=== PATIENT | male | born 1950 | race Caucasian/White ===

== ENCOUNTER → 2017-02-21 | Day surgery (SDC) | payer MEDICARE, OTHER ==
[~2017-02-21] VITALS: Ht 177.8 cm; Wt 85.3 kg
[~2017-02-21] MED LIST: AMLODIPINE-ATO1 EAC9 PO; BICALUTAMIDE50 MG PO; CPAP INH; LEVOTHROID (S100 MCG PO; LOTENSIN10 MG PO; NORCO 5-325 TA1 EACH PO; PRILOSEC20 MG PO
--- NOTE | ~2017-02-21 | HP ---
PATIENT'S NAME: DOMINGO ORTEGA [facility] AGE: 67 Y [address] ROOM: [place] [address] LOCATION: [facility] [place] ADMIT DATE: 02/21/2017 History & Physical DISCHARGE DATE: FAMILY PHYSICIAN: Doroteo Montaño MD ATTENDING PHYSICIAN: Julian Knight DATE OF SERVICE: CHIEF COMPLAINT: Increasing voiding difficulty secondary to prostate cancer. 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 He was originally diagnosed in 2002 with Anita grade 8. He had pathologic stage T3b at the time of the surgery in November 2002. He followed up surgery with radiation therapy. It recurred relatively quickly and was started on hormone therapy. He has been maintained on that since 2003. He has become hormone refractory. He has had bladder neck contractures, incontinence, urinary retention, urinary tract infections, etc., relative to his local progression and his past history surgery and radiation. He is to the point, having done self intermittent catheterizations, but he requests suprapubic tube. He has had urodynamic testing as well as cystoscopy. He underwent a transurethral resection of his bladder neck less than a year ago. With all of the complications, we are going to take his urethra and bladder neck out of the equation with the suprapubic tube. PAST MEDICAL HISTORY: His past history is related to the above. He did have a diagnosis of colon cancer in 2014. He underwent a partial colectomy. He has done fine from that standpoint. He has hypertension. MEDICATIONS: 1. Casodex. 2. Benazepril. 3. Thyroid replacement. 4. Amlodipine. ALLERGIES: LUPRON INJECTIONS. REVIEW OF SYSTEMS: He denies any cardiopulmonary or GI complaints. His main complaints and his detriment to his current quality of life are related to his prostate cancer PATIENT'S NAME: DOMINGO ORTEGA [facility] AGE: 67 Y [address] ROOM: [place] [address] LOCATION: [facility] [place] ADMIT DATE: 02/21/2017 History & Physical DISCHARGE DATE: FAMILY PHYSICIAN: Doroteo Montaño MD ATTENDING PHYSICIAN: Julian Knight and associated complications outlined above. FAMILY HISTORY: Noncontributory. SOCIAL HISTORY: . He does not smoke or drink. PHYSICAL EXAMINATION: GENERAL: The patient appears his usual self. VITAL SIGNS: Blood pressure is 128/76 with a pulse of 78. He is 196 pounds which is relatively stable for him. HEART: Currently regular. BREASTS: He has developed gynecomastia from his chronic hormonal ablation. ABDOMINAL: Reveals well-healed surgical sites. LUNGS: Clear. : Per his cystoscopies and he is known prostate cancer. EXTREMITIES: No clubbing, cyanosis, or edema. IMPRESSION: High-grade adenocarcinoma of prostate, status post surgery and radiation and now on total androgen ablation with most recent PSA of 2.5 and with persistent and progressive complications secondary to his local progression and his past history. Those complications include urinary retention, urinary incontinence, urinary tract infections, etc. He voided with indwelling catheters. He had been self catheterizing in the past. He presents at this time for suprapubic tube placement. He has had his questions answered. He understands the indications, risks, and benefits. He wishes to proceed. JULIAN KNIGHT MD [facility]/modl /[id number] CC: Doroteo Montaño MD D: 31 HISTORY & PHYSICAL
--- NOTE | ~2017-02-21 | OR ---
PATIENT'S NAME: DOMINGO ORTEGA [facility] AGE: 67 Y [address] ROOM: [place] [address] LOCATION: [facility] [place] ADMIT DATE: 02/21/2017 OR/Procedure Report DISCHARGE DATE: FAMILY PHYSICIAN: Doroteo Montaño MD ATTENDING PHYSICIAN: Julian Knight SURGEON: Julian Knight MD LABEL PRINTER: DATE OF PROCEDURE: 02/21/2017 PREOPERATIVE DIAGNOSES: 1. High-grade adenocarcinoma of the prostate with local progression with past history of surgery and radiation. 2. Associated urinary incontinence. 3. Urinary retention. 4. Urinary tract infections. POSTOPERATIVE DIAGNOSES: 1. High-grade adenocarcinoma of the prostate with local progression with past history of surgery and radiation. 2. Associated urinary incontinence. 3. Urinary retention. 4. Urinary tract infections. 5. Bladder stone. PROCEDURES: 1. Cystoscopy with litholapaxies. 2. Suprapubic tube placement. ANESTHESIA: Sedation plus local. INDICATIONS: This is a 67-year-old gentleman with the above-noted diagnoses. He is approximately 14 years out from diagnosis with a Kim grade 8. He had pathologic stage T3b at the time of surgery. He followed that with radiation therapy. He has had progressive complications secondary to his surgery and radiation as well as associated bladder neck contractures. He has done intermittent self-catheterizations. He has had recurrent infections. He is having incontinence. He presents at this time for suprapubic tube placement. DESCRIPTION OF PROCEDURE: Having obtained his informed consent, the patient was taken to the operating room. He was prepped and draped sterilely in the lithotomy position. IV sedation is administered. I started with the Lowsley. I did dilate his distal urethra. I then got back to his bladder neck, and consistent with his history, it is obstructed. I passed the cystoscope. We got into his bladder. He has a 1 cm stone in his bladder. Bladder itself was PATIENT'S NAME: DOMINGO ORTEGA [facility] AGE: 67 Y [address] ROOM: [place] [address] LOCATION: [facility] [place] ADMIT DATE: 02/21/2017 OR/Procedure Report DISCHARGE DATE: FAMILY PHYSICIAN: Doroteo Montaño MD ATTENDING PHYSICIAN: Julian Knight otherwise unremarkable other than the bladder neck contracture. Once we got him dilated, used the lithotrite and broke the stone up. All stones were evacuated. He has extensive calcification at the bladder neck. With the stone broken up and removed, I passed the Lowsley again. The skin overlying the Lowsley was infiltrated with 1% lidocaine epinephrine. A 1 cm incision was made. It was taken down on the Lowsley. The Lowsley was brought through the abdominal wall. I then brought it out through the urethra in an antegrade fashion. I then followed it back in cystoscopically. With the catheter in good position, the balloon is inflated. Catheter irrigates nicely. He had some mild bleeding at the bladder neck, but there is no other bleeding. The catheter is secured with a Prolene suture, which was also used to close our small incision. The case was concluded. The patient tolerated the procedure well. Blood loss was minimal. No specimens were sent. The patient returned to the outpatient recovery in awake and stable condition. JULIAN KNIGHT MD [facility]/modl /[id number] CC: Doroteo Montaño MD d: 02/21/1723 t: 02/23/17 0933, OPERATIVE SUMMARY
[2017-02-21 06:59] LABS: BASOPHIL # 0.1 K/uL (0.0-0.2); EOSINOPHIL # 0.1 K/uL (0.0-0.5); EOSINOPHIL % 2.6 %; HEMATOCRIT 40.5 % (37.0-53.0); HEMOGLOBIN 13.4 g/dL (11.0-16.0); IMMATURE GRANULOCYTE % 0.2 %; LYMPHOCYTE # 1.6 K/uL (0.8-4.0); LYMPHOCYTE % 33.1 %; MCH 31.6 pg (27.0-34.0); MCHC 33.1 gm/dL (32.0-36.5); MCV 95.5 fl (83.0-98.0); MONOCYTE # 0.4 K/uL (0.0-1.0); MONOCYTE % 7.9 %; MPV 8.7 fl (9.4-12.4); NEUTROPHIL # (ANC) 2.7 K/uL (1.4-9.0); NEUTROPHIL % 55.2 %; NRBC % 0 /100WBC (0-0.00); PLATELET COUNT 216 K/uL (150-450); RBC 4.24 M/uL (3.50-5.50); RDW-CV 12.1 % (11.9-14.6); WBC 4.9 K/uL (4.0-11.0)
[2017-02-21 07:29] LABS: ALBUMIN 3.8 gm/dL (3.5-5.0); ALK PHOS 85 IU/L (33-138); ALT 23 IU/L (12-78); BLOOD UREA NITROGEN 14 mg/dL (6-24); CALCIUM 8.2 mg/dL (8.5-10.5); CHLORIDE 108 mMol/L (96-110); CO2 28 mMol/L (22-32); CREATININE 0.9 mg/dL (0.6-1.3); ESTIMATED GFR (MDRD EQUATION) > 60; SODIUM 143 mMol/L (135-145); TOTAL BILIRUBIN 0.8 mg/dL (0.0-1.5); TOTAL PROTEIN 7.2 g/dL (6.0-8.4)
[2017-02-21 07:32] LABS: ANION GAP 10.9 (10.0-19.0); AST 19 IU/L (10-40)
[2017-02-21 07:33] LABS: POTASSIUM 3.9 mMol/L (3.7-5.1)
== END | disposition disaster alternative care site (69) ==
LOC: GPOC 02-10 09:00 → GSDC 06:28
PROVIDERS: Urology
PROC: 0TCB8ZZ Extirpation of Matter from Bladder, Via Natural or Artificial Opening Endoscopic (ICD-10-PCS; principal; 2017-02-21)
PROC: 0T9B80Z Drainage of Bladder with Drainage Device, Via Natural or Artificial Opening Endoscopic (ICD-10-PCS; 2017-02-21)
DX: N21.0 Calculus in bladder (principal); C61 Malignant neoplasm of prostate; N13.9 Obstructive and reflux uropathy, unspecified; R32 Unspecified urinary incontinence; R33.8 Other retention of urine; E11.9 Type 2 diabetes mellitus without complications; K21.9 Gastro-esophageal reflux disease without esophagitis; E03.9 Hypothyroidism, unspecified; I10 Essential (primary) hypertension; Z90.49 Acquired absence of other specified parts of digestive tract
CPT/HCPCS: J1956; J2001; J2405; J3010; J7030

== ENCOUNTER 2017-07-18 01:21 | Emergency (ER) | payer MEDICARE, OTHER ==
--- NOTE | ~2017-07-18 | ER ---
PATIENT'S NAME: DOMINGO ORTEGA [facility] AGE: 67 Y [address] ROOM: [place] [address] LOCATION: [facility] ADMIT DATE: 07/18/2017 ER/Outpatient Report DISCHARGE DATE: FAMILY PHYSICIAN: Doroteo Montaño MD ATTENDING PHYSICIAN: Gisela Hernadez HISTORY OF PRESENT ILLNESS: This is a 67-year-old male who presents today with a chief complaint of problems with his suprapubic urinary catheter. He states it has been leaking around in the penis and he has increased sediment in the bag drainage. He says that he noticed that the drainage from the bag has been a lot less today. Also, feels some pressure in his lower abdomen. Denies any nausea, vomiting, fever, chills, or any other complaints. No burning. PAST MEDICAL HISTORY: Includes prostate cancer status post radiation, chronic urinary retention, hypertension, hyperthyroid. SURGICAL HISTORY: Includes colon resection, suprapubic cath. SOCIAL HISTORY: Chewing tobacco. Alcohol occasionally. Denies any drug use. MEDICATIONS: Please see med list. ALLERGIES: NONE. REVIEW OF SYSTEMS: Reviewed by me and with the exception of those discussed in the HPI. PHYSICAL EXAMINATION: VITAL SIGNS: His height is 5 feet 10 inches. His weight is 90.4. Blood pressure 159/81, heart rate 72, respiratory rate 16, temperature is 96.3, sats are 94% on room air. GENERAL: The patient is a very pleasant male. Speaking in full sentences. He looks mildly uncomfortable, but nontoxic. HEART: Regular rate and rhythm at this time. LUNGS: Sounds are clear. ABDOMEN: He has no epigastric tenderness. No right upper quadrant tenderness. No left upper quadrant tenderness. No right lower quadrant tenderness. No left lower quadrant tenderness. The suprapubic catheter appears to be in place; however, the bag is not draining appropriately. PATIENT'S NAME: DOMINGO ORTEGA [facility] AGE: 67 Y [address] ROOM: [place] [address] LOCATION: [facility] ADMIT DATE: 07/18/2017 ER/Outpatient Report DISCHARGE DATE: FAMILY PHYSICIAN: Doroteo Montaño MD ATTENDING PHYSICIAN: Gisela Hernadez EMERGENCY ROOM COURSE: His current suprapubic catheter was initially placed in January and then replaced once in February. Has not been changed since then. We osmin out the water from the balloon and removed it and then placed an 18-Scottish Garrett in there. It had immediate drainage, initially blood-tinged, but then about 200 mL and then it started to clear. Drained about another 100 mL. I did a bedside ultrasound. The Garrett is in place. The balloon is in place as where it should be and the bladder appears small around the Garrett. The patient says he feels better than when he came in. He feels okay and he feels better that it is draining out. We will have him follow up with Dr. Nova in the morning. He understands reasons to return to the ER sooner. IMPRESSION: Supra catheter problem. MD MANISH RODRIGUEZ/chiara /[id number] d: 07/18/17410 t: 07/18/17 1937, OUTPATIENT REPORT
== END 2017-07-18 02:07 | disposition disaster alternative care site (69) ==
LOC: GMED 01:21
DX: T83.030A Leakage of cystostomy catheter, initial encounter (principal); I10 Essential (primary) hypertension; E05.90 Thyrotoxicosis, unspecified without thyrotoxic crisis or storm; F17.220 Nicotine dependence, chewing tobacco, uncomplicated; Z90.49 Acquired absence of other specified parts of digestive tract; Z85.46 Personal history of malignant neoplasm of prostate; Z79.899 Other long term (current) drug therapy